=== PATIENT | male | born 1995 | race African-American/Black ===

== ENCOUNTER 2018-08-25 17:49 | Emergency (ER) | payer OTHER ==
[2018-08-25] MEDS ORDERED: Dexamethasone 4 mg/ml Vial ONE (18:42)
[2018-08-25] MEDS ORDERED: Metoclopramide HCl 10 MG/2 ML VIAL ONE (18:42)
[2018-08-25] MEDS ORDERED: Ketorolac Tromethamine 30 MG/ML VIAL ONE (18:42)
[2018-08-25 18:55] LABS: #Basophils 0.1 thou/uL (0.0-0.2); #Eosinphils 0.1 thou/uL (0.0-0.7); #Lymphocytes 1.4 thou/uL (1.20-3.40); #Neutrophils 14.5 thou/uL (1.40-6.50); %Basophils 0.5 % (0.0-1.0); %Eosinophils 0.6 % (0.0-10.0); %Lymphocytes 8.3 % (28.0-48.0); %Monocytes 5.9 % (0.0-4.0); %Neutrophils 84.8 % (31.0-61.0); Hemoglobin 15.5 g/dL (14.0-18.0); Mean Corpuscular HGB CONC 34.9 g/dL (32.0-36.0); Mean Corpuscular Hemoglobin 30.5 pg (25.0-35.0); Mean Corpuscular Volume 87.4 fL (78.0-98.0); Platelet Count 228 thou/uL (130-400); RBC Distribution Width 11.2 % (11.5-14.5); Red Blood Cell (RBC) Count 5.09 mill/uL (4.00-5.20); White Blood Cell (WBC) Count 17.1 thou/uL (4.8-10.8)
--- NOTE | 2018-08-25 19:00 | CT ---
EXAM: CT brain without contrast HISTORY: Headache with vomiting COMPARISON: 07/24/2014 TECHNIQUE: Multiple contiguous axial images were obtained and a CT of the brain without contrast. FINDINGS: The brain is normal in morphology and attenuation without focal lesions or confluent areas of infarction. There is no evidence of hydrocephalus, intracranial hemorrhage, or extra-axial fluid collection. The calvarium and overlying soft tissues are unremarkable. The visualized paranasal sinuses and masto id air cells are well aerated. IMPRESSION: No evidence of acute intracranial abnormality
[2018-08-25 19:24] LABS: ALT (SGPT) 67 U/L (8-55); AST (SGOT) 67 U/L (5-34); Alkaline Phosphatase 68 U/L (Less than 750); Anion Gap 18 mmol/L (10-20); BUN (Urea Nitrogen) 13 mg/dL (8.9-20.6); Bilirubin, Total 1.1 mg/dL (0.2-1.2); Calc. Creatinine Clearance 0 mL/min (70-130); Calcium 10.1 mg/dL (7.8-10.44); Carbon Dioxide 24 mmol/L (22-29); Chloride 101 mmol/L (98-107); Estimated GFR-MDRD 83; Globulin 3.1 g/dL (2.4-3.5); Glucose 83 mg/dL (70-105); Potassium 4.1 mmol/L (3.5-5.1); Protein, Total 8.1 g/dL (6.0-8.3); Sodium 139 mmol/L (136-145)
[2018-08-25] MEDS ORDERED: Ondansetron PF 4 MG/2 ML Vial ONE (19:30)
[2018-08-25] MEDS ORDERED: Fentanyl 100 MCG/2 ML VIAL ONE (20:23)
== END 2018-08-25 20:15 | disposition home or self-care (01) ==
LOC: ERS 17:49
DX: R51 Headache (principal); F17.210 Nicotine dependence, cigarettes, uncomplicated
CPT/HCPCS: 36415; 70450; 80053; 85025; 96365; 96375; J1100; J1885; J2405; J2765; J3010

== ENCOUNTER 2018-11-27 01:14 | Emergency (ER) | payer SELFPAY | END 2018-11-27 02:24 | disposition home or self-care (01) | LOC: ERS 01:14 | DX: L73.9 Follicular disorder, unspecified (principal); F17.210 Nicotine dependence, cigarettes, uncomplicated | CPT/HCPCS: 99283 ==

== ENCOUNTER 2020-05-06 00:17 | Emergency (ER) | payer OTHER ==
[2020-05-06] MEDS ORDERED: Ondansetron PF 4 MG/2 ML Vial ONE (00:47)
[2020-05-06 01:03] LABS: Hemoglobin 14.9 g/dL (14.0-18.0); Mean Corpuscular HGB CONC 32.9 g/dL (32.0-36.0); Mean Corpuscular Hemoglobin 28.5 pg (27.0-31.0); Mean Corpuscular Volume 86.7 fL (78.0-98.0); Mean Platelet Volume 8.7 fL (7.4-10.4); Platelet Count 310 thou/uL (130-400); RBC Distribution Width 10.8 % (11.5-14.5); Red Blood Cell (RBC) Count 5.21 mill/uL (4.70-6.10); White Blood Cell (WBC) Count 22.4 thou/uL (4.8-10.8)
[2020-05-06 01:21] LABS: ALT (SGPT) 33 U/L (8-55); AST (SGOT) 40 U/L (5-34); Alkaline Phosphatase 65 U/L (40-110); Anion Gap 27 mmol/L (10-20); BUN (Urea Nitrogen) 17 mg/dL (8.9-20.6); Bilirubin, Total 0.4 mg/dL (0.2-1.2); CK (CPK) 612 U/L (30-200); Calc. Creatinine Clearance 0 mL/min (70-130); Calcium 9.7 mg/dL (7.8-10.44); Carbon Dioxide 13 mmol/L (22-29); Chloride 103 mmol/L (98-107); Globulin 3.6 g/dL (2.4-3.5); Glucose 159 mg/dL (70-105); Potassium 4.4 mmol/L (3.5-5.1); Protein, Total 8.6 g/dL (6.0-8.3); Sodium 139 mmol/L (136-145)
[2020-05-06 01:22] LABS: Band 6 % (5-11); Eosinophils 1 % (0-10); Lymphocytes 11 % (21-51); MDiff Complete? YES; Monocytes 6 % (0-10); Neutrophil 76 % (42-75); Platelet Morphology Comment Appears Adequate; RBC Morphology Normal
== END 2020-05-06 02:35 | disposition home or self-care (01) ==
LOC: ERS 00:17
DX: E86.0 Dehydration (principal); N17.9 Acute kidney failure, unspecified
CPT/HCPCS: 36415; 80053; 82550; 85025; 96374; J2405